=== PATIENT | male | born 1995 | race Caucasian/White ===

== ENCOUNTER 2016-04-20 19:20 | Emergency (ER) | payer SELFPAY ==
[2016-04-20] MEDS ORDERED: ACETAMINOPHEN 325 MG TABLET PO ONE ×2 (20:17→20:19)
--- NOTE | 2016-04-20 20:53 | ER Document Report ---
ED Flu Like - General Chief Complaint: Flu Symptoms Stated Complaint: COUGH,VOMITING,HURTS TO BREATHE Notes: Patient is a 21-year-old male that comes emergency department for chief complaint of fever, cough, sore throat, and a couple of episodes of vomiting after coughing episodes, symptoms started yesterday, patient has not had influenza vaccine, denies history of asthma, patient smokes 2 packs a day, past medical history of anxiety and depression. TRAVEL OUTSIDE OF THE [place] IN LAST 30 DAYS: No - Related Data Allergies/Adverse Reactions: No Known Allergies Allergy (Verified 04/20/16 20:16) Past Medical History - General Information source: Patient - Social History Smoking Status: Current Every Day Smoker Chew tobacco use (# tins/day): No Frequency of alcohol use: Social Drug Abuse: None Lives with: Family Family History: Reviewed & Not Pertinent Patient has suicidal ideation: No Patient has homicidal ideation: No - Medical History Medical History: Negative Renal/ Medical History: Denies: Hx Peritoneal Dialysis Surgical Hx: Negative - Immunizations Immunizations up to date: Yes Review of Systems - Review of Systems Constitutional: See HPI EENT: See HPI Cardiovascular: No symptoms reported Respiratory: See HPI Gastrointestinal: No symptoms reported Genitourinary: No symptoms reported Male Genitourinary: No symptoms reported Musculoskeletal: No symptoms reported Skin: No symptoms reported Hematologic/Lymphatic: No symptoms reported Neurological/Psychological: No symptoms reported Physical Exam - Vital signs Vitals: Temp Pulse Resp BP Pulse Ox 101.8 F H 111 H 17 133/71 H 96 04/20/16 19:51 04/20/16 19:51 04/20/16 19:51 04/20/16 19:51 04/20/16 19:51 Interpretation: Normal - General General appearance: Appears well, Alert In distress: None - HEENT Head: Normocephalic, Atraumatic Eyes: Normal Pupils: PERRL - Respiratory Respiratory status: No respiratory distress. No: Labored, Tachypnea Chest status: Nontender Breath sounds: Nonproductive cough - Coughing episodes, Other - A few coarse breath sounds bilaterally, no wheezing, rales, rhonchi Chest palpation: Normal - Cardiovascular Rhythm: Regular, Tachycardia Heart sounds: Normal auscultation, S1 appreciated, S2 appreciated Murmur: No - Abdominal Inspection: Normal Distension: No distension Bowel sounds: Normal Tenderness: Nontender. No: Tender Organomegaly: No organomegaly - Back Back: Normal, Nontender. No: Tender - Extremities General upper extremity: Normal inspection, Nontender, Normal strength, Normal temperature General lower extremity: Normal inspection, Nontender, Normal strength, Normal temperature - Neurological Neuro grossly intact: Yes Cognition: Normal Orientation: AAOx4 [place] Coma Scale Eye Opening: Spontaneous [place] Coma Scale Verbal: Oriented [place] Coma Scale Motor: Obeys Commands [place] Coma Scale Total: 15 Speech: Normal Motor strength normal: LUE, RUE, LLE, RLE Sensory: Normal - Psychological Associated symptoms: Normal affect, Normal mood - Skin Skin Temperature: Warm Skin Moisture: Dry Skin Color: Normal Course - Re-evaluation Re-evalutation: Patient febrile, has coughing episodes, unremarkable throat exam, chest x-ray unremarkable, influenza negative. Patient with coarse breath sounds on examination, 2 pack a day smoking history, after discussion patient will be placed on prednisone, azithromycin, discussed smoking cessation, patient states satisfaction and agreement with plan. - Vital Signs Vital signs: Temp Pulse Resp BP Pulse Ox 99.5 F 92 18 126/73 H 98 04/20/16 21:35 04/20/16 21:35 04/20/16 21:35 04/20/16 21:35 04/20/16 21:35 Discharge - Discharge Clinical Impression: Cough, Tobacco abuse, Shortness of breath Upper respiratory infection Qualifiers: URI type: unspecified URI Qualified Code(s): J06.9 - Acute upper respiratory infection, unspecified Fever Qualifiers: Fever type: unspecified Qualified Code(s): R50.9 - Fever, unspecified Condition: Stable Disposition: HOME, SELF-CARE Additional Instructions: No abnormalities are seen on her chest x-ray, influenza is negative. This could be viral, rest, drink plenty of fluids, take ibuprofen or Tylenol for fever, take the prednisone and azithromycin as directed. Stop smoking. Follow-up with primary care. Return to the emergency department for any concerning or worsening symptoms. Prescriptions: Azithromycin [Zithromax 250 mg Tablet] 250 mg PO ASDIR PRN #6 tablet PRN Reason: Prednisone [Deltasone 10 mg Tablet] 10 mg PO ASDIR PRN #21 tablet PRN Reason: Forms: Return to Work
[2016-04-20 22:15] VITALS: BP 126/73
== END 2016-04-20 21:40 | disposition home or self-care (01) ==
LOC: ER 19:20
DX: J06.9 Acute upper respiratory infection, unspecified (principal); R50.9 Fever, unspecified; R11.10 Vomiting, unspecified; R06.02 Shortness of breath; F17.210 Nicotine dependence, cigarettes, uncomplicated
CPT/HCPCS: 71020; 87804; 99283

== ENCOUNTER 2016-09-20 12:13 | Emergency (ER) | payer SELFPAY ==
[2016-09-20 12:18] VITALS: BP 150/91
[2016-09-20] MEDS ORDERED: MAG HYDROX/AL HYDROX/SIMETH SUSP 30 ML UDCUP PO ONE (13:05)
[2016-09-20] MEDS ORDERED: LIDOCAINE 2% VISCOUS SOLN 20 ML UDCUP PO ONE (13:05)
--- NOTE | 2016-09-20 13:10 | ER Document Report ---
HPI - HPI Patient complains to provider of: sore throat Pain Level: 5 Context: 21 yo healthy male c/o sore throat x 1 week. feels like hes swallowing razor blades. pain into right ear. no fever. no runny nose or post nasal drip. no known sick contacts Associated Symptoms: Sore throat. denies: Fever, Sinus pain/drainage Exacerbated by: Denies Relieved by: Denies - ROS Systems Reviewed and Negative: Yes All other systems reviewed and negative - REPRODUCTIVE Reproductive: DENIES: : - DERM Skin Color: Normal Past Medical History - General Information source: Patient - Social History Smoking Status: Current Every Day Smoker Frequency of alcohol use: None Drug Abuse: None Lives with: Family Family History: Reviewed & Not Pertinent - Medical History Medical History: Negative Renal/ Medical History: Denies: Hx Peritoneal Dialysis - Immunizations Immunizations up to date: Yes Hx Diphtheria, Pertussis, Tetanus Vaccination: Yes Vertical Provider Document - CONSTITUTIONAL Agree With Documented VS: Yes Exam Limitations: No Limitations General Appearance: WD/WN, No Apparent Distress - INFECTION CONTROL TRAVEL OUTSIDE OF THE [place] IN LAST 30 DAYS: No - HEENT HEENT: Atraumatic, PERRLA, Pharyngeal Tenderness, Pharyngeal Erythema - NECK Neck: Normal Inspection, Supple - RESPIRATORY Respiratory: Breath Sounds Normal, No Respiratory Distress O2 Sat by Pulse Oximetry: 98 - CARDIOVASCULAR Cardiovascular: Regular Rate, Regular Rhythm - GI/ABDOMEN Gastrointestinal: Abdomen Soft, Abdomen Non-Tender - BACK Back: Normal Inspection - MUSCULOSKELETAL/EXTREMETIES Musculoskeletal/Extremeties: MAEW, FROM - NEURO Level of Consciousness: Awake, Alert, Appropriate - DERM Integumentary: Warm, Dry, No Rash Course - Re-evaluation Re-evalutation: 09/20/16 13:15 H&P c/w pharyngitis. no suspicion for ludwigs or peritonsillar abscess. pt is afebrile and nontoxic. stable for discharge - Vital Signs Vital signs: Temp Pulse Resp BP Pulse Ox 98.4 F 77 16 150/91 H 98 09/20/16 12:16 09/20/16 12:16 09/20/16 12:16 09/20/16 12:16 09/20/16 12:16 Discharge - Discharge Clinical Impression: Sore throat Condition: Stable Disposition: HOME, SELF-CARE Instructions: Penicillin V K ([facility]), Sore Throat ([facility]) Additional Instructions: Take medication as prescribed Lozenges, salt water gargles Recommend new toothbrush in 2 days Follow up with primary care if pain persists, Return to ER for any worsening Prescriptions: Nystatin/Dexameth/Diphen [Magic Mouthwash] 5 ml PO QID PRN #120 ml PRN Reason: Penicillin V Potassium [Penicillin Vk 500 mg Tablet] 500 mg PO BID #20 tablet Prednisone [Deltasone 20 mg Tablet] 2 tab PO BID #16 tablet Forms: Elevated Blood Pressure
== END 2016-09-20 13:29 | disposition home or self-care (01) ==
LOC: ER 12:13
DX: J02.9 Acute pharyngitis, unspecified (principal); F17.200 Nicotine dependence, unspecified, uncomplicated
CPT/HCPCS: 99282; J3490

== ENCOUNTER 2017-05-29 22:23 | Emergency (ER) | payer SELFPAY ==
--- NOTE | 2017-05-29 23:17 | RADIOLOGY REPORT (SQ) ---
EXAM DESCRIPTION: CHEST 2 VIEWS COMPLETED DATE/TIME: 05/29/2017 11:07 pm REASON FOR STUDY: cough COMPARISON: 04/20/2016. EXAM PARAMETERS: NUMBER OF VIEWS: two views TECHNIQUE: Digital Frontal and Lateral radiographic views of the chest acquired. RADIATION DOSE: NA LIMITATIONS: none FINDINGS: LUNGS AND PLEURA: No opacities, masses or pneumothorax. No pleural effusion. MEDIASTINUM AND HILAR STRUCTURES: No masses or contour abnormalities. HEART AND VASCULAR STRUCTURES: Heart normal size. No evidence for failure. BONES: No acute findings. HARDWARE: None in the chest. OTHER: No other significant finding. IMPRESSION: NO ACUTE RADIOGRAPHIC FINDING IN THE CHEST. TECHNICAL DOCUMENTATION: JOB ID: [id number] [employer]- All Rights Reserved Reading location - IP/workstation name: [email or web address]
[2017-05-30] MEDS ORDERED: DEXAMETHASONE 4 MG TABLET PO ONE (00:08)
[2017-05-30] MEDS ORDERED: ALBUTEROL SULFATE HFA (90 MCG/PUFF) 200 PUFF/8.5 GM MDI IH ONE (00:08)
[2017-05-30] MEDS ORDERED: OXYMETAZOLINE HCL 0.05% NASAL SPRAY 15 ML BOTTLE NASL ONE (00:08)
--- NOTE | 2017-05-30 00:11 | ER Document Report ---
ED General - General Chief Complaint: Cough Stated Complaint: DIFFICULTY BREATHING Time Seen by Provider: 05/29/17 23:45 Notes: Patient is a 22-year-old male without past medical history current every day tobacco smoker who presents with 5-6 days of cough, sputum production, chest wall pain, body aches and lightheadedness. Patient reports that his symptoms started gradually and have been persistent since that time. He has been trying [id number] decongestants without any improvement of his symptoms. He states this feels somewhat similar to when he had bronchitis in the past. He has not seen his primary doctor regarding today's concerns. He describes the chest wall discomfort as an aching, throbbing discomfort that is present only when he coughs or moves vigorously. Denies any hemoptysis, pleuritic pain, or history of DVT or pulmonary embolus. He reports that he had subjective fever at home approximately 2-3 days ago. TRAVEL OUTSIDE OF THE [place] IN LAST 30 DAYS: No - Related Data Allergies/Adverse Reactions: No Known Allergies Allergy (Verified 09/20/16 12:17) Past Medical History - General Information source: Patient - Social History Smoking Status: Current Every Day Smoker Smoking Education Provided: Yes - Smoking cessation counseling was provided for 4 minutes at the bedside Frequency of alcohol use: None Drug Abuse: None Lives with: Friend Family History: Reviewed & Not Pertinent Renal/ Medical History: Denies: Hx Peritoneal Dialysis - Immunizations Immunizations up to date: Yes Hx Diphtheria, Pertussis, Tetanus Vaccination: Yes Review of Systems - Review of Systems Notes: Constitutional: Negative for fever. HENT: Negative for sore throat. Eyes: Negative for visual changes. Cardiovascular: Positive for chest wall pain Respiratory: Positive for shortness of breath. Gastrointestinal: Negative for abdominal pain, vomiting or diarrhea. Genitourinary: Negative for dysuria. Musculoskeletal: Negative for back pain. Skin: Negative for rash. Neurological: Negative for headaches, weakness or numbness. 10 point ROS negative except as marked above and in HPI. Physical Exam - Vital signs Vitals: Temp Pulse Resp BP Pulse Ox 98.2 F 98 16 153/87 H 100 05/29/17 22:32 05/29/17 22:32 05/29/17 22:32 05/29/17 22:32 05/29/17 22:32 Interpretation: Hypertensive Notes: PHYSICAL EXAMINATION: GENERAL: Well-appearing, well-nourished and in no acute distress. HEAD: Atraumatic, normocephalic. EYES: Pupils equal round and reactive to light, extraocular movements intact, sclera anicteric, conjunctiva are normal. ENT: nares patent, oropharynx clear without exudates. Moist mucous membranes. TMs somewhat erythematous bilaterally without bulging or purulent effusion. NECK: Normal range of motion, supple without lymphadenopathy LUNGS: Breath sounds clear to auscultation bilaterally and equal. Faint end expiratory wheezing throughout. HEART: Regular rate and rhythm without murmurs ABDOMEN: Soft, nontender, normoactive bowel sounds. No guarding, no rebound. No masses appreciated. EXTREMITIES: Normal range of motion, no pitting or edema. No cyanosis. NEUROLOGICAL: No focal neurological deficits. Moves all extremities spontaneously and on command. PSYCH: Normal mood, normal affect. SKIN: Warm, Dry, normal turgor, no rashes or lesions noted. Course - Re-evaluation Re-evalutation: 05/30/17 00:09 Patient presents with a clinical history and exam most consistent with an acute viral bronchitis. Patient is overall well in appearance without tachypnea, hypoxemia, tachycardia, or difficulty with ambulation. Breath sounds are clear bilaterally. No fever. Patient does have additional signs of upper respiratory infection including nasal congestion, sore throat, and sinus pressure. Chest x-ray is clear. Will treat with bronchodilators, single dose of dexamethasone, and Tessalon Perles. At this time will discharge with return precautions and follow-up recommendations. Verbal discharge instructions given a the bedside and opportunity for questions given. Medication warnings reviewed. Patient is in agreement with this plan and has verbalized understanding of return precautions and the need for primary care follow-up in the next 24-72 hours. - Vital Signs Vital signs: Temp Pulse Resp BP Pulse Ox 98.1 F 83 18 145/70 H 96 05/30/17 00:28 05/30/17 00:28 05/30/17 00:28 05/30/17 00:28 05/30/17 00:28 - Diagnostic Test Radiology reviewed: Image reviewed, Reports reviewed Radiology results interpreted by me: 05/30/17 03:39 Chest x-ray: No acute infiltrate or pneumothorax Discharge - Discharge Clinical Impression: Bronchitis, Right ear pain, Tobacco use Condition: Good Disposition: HOME, SELF-CARE Additional Instructions: You were seen for symptoms most consistent with bronchitis. This can take up to 12 weeks to fully resolve. This is generally due to a viral infection. Please follow-up with your primary doctor in the next 2-3 days. Return if you develop worsening cough, vomiting, fever >100.4, pass out, begin coughing blood, or have any other symptoms that are concerning to you. Please use the medications prescribed today as directed. Prescriptions: Benzonatate [Tessalon Perles 100 mg Capsule] 100 mg PO Q8HP PRN #40 capsule PRN Reason: Forms: Smoking Cessation Education
[2017-05-30 00:30] VITALS: BP 145/70
== END 2017-05-30 00:32 | disposition home or self-care (01) ==
LOC: ER 22:23
DX: J40 Bronchitis, not specified as acute or chronic (principal); H92.01 Otalgia, right ear; R05 Cough; R07.89 Other chest pain; M79.1 Myalgia; R42 Dizziness and giddiness; R06.02 Shortness of breath; R06.2 Wheezing; R09.81 Nasal congestion; J02.9 Acute pharyngitis, unspecified; F17.290 Nicotine dependence, other tobacco product, uncomplicated; Z71.6 Tobacco abuse counseling
CPT/HCPCS: 99406; 99283; 71046; J3490 ×2

== ENCOUNTER 2019-04-16 01:41 | Emergency (ER) | payer SELFPAY ==
[2019-04-16 02:38] LABS: ABSOLUTE EOSINOPHILS # (AUTO) 0.1 10^3/uL (0.0-0.6); ABSOLUTE LYMPHOCYTES (AUTO) 2.1 10^3/uL (0.5-4.7); ABSOLUTE MONOCYTES (AUTO) 0.6 10^3/uL (0.1-1.4); ABSOLUTE NEUT (AUTO) 6.4 10^3/uL (1.7-8.2); BASOPHILS % (AUTO) 0.5 % (0-2); EOSINOPHILS % (AUTO) 1.4 % (0-6); HEMATOCRIT 47.2 % (37.9-51.0); HEMOGLOBIN 16.3 g/dL (13.5-17.0); LYMPHOCYTES % (AUTO) 22.5 % (13-45); MEAN CORPUSCULAR HEMOGLOBIN 31.5 pg (27.0-33.4); MEAN CORPUSCULAR HGB CONC 34.5 g/dL (32.0-36.0); MEAN CORPUSCULAR VOLUME 91 fl (80-97); MONOCYTES % (AUTO) 6.4 % (3-13); PLATELET COUNT 203 10^3/uL (150-450); RED BLOOD COUNT 5.17 10^6/uL (4.35-5.55); RED CELL DISTRIBUTION WIDTH 13.4 % (11.5-14.0); SEGMENTED NEUTROPHILS % (AUTO) 69.2 % (42-78); TOTAL CELLS COUNTED % (AUTO) 100 %; WHITE BLOOD COUNT 9.2 10^3/uL (4.0-10.5)
[2019-04-16 02:53] LABS: APPEARANCE,URINE CLEAR; BILIRUBIN,URINE NEGATIVE (NEGATIVE); COLOR,URINE YELLOW; GLUCOSE, URINE NEGATIVE (NEGATIVE); KETONES,URINE NEGATIVE (NEGATIVE); LEUKOCYTE ESTERASE,URINE NEGATIVE (NEGATIVE); NITRITE,URINE NEGATIVE (NEGATIVE); PROTEIN,URINE NEGATIVE (NEGATIVE); URINE SPECIFIC GRAVITY 1.012; UROBILINOGEN,URINE NEGATIVE mg/dL (<2.0)
[2019-04-16 02:58] LABS: ALBUMIN 4.3 g/dL (3.5-5.0); ALKALINE PHOSPHATASE 78 U/L (38-126); ANION GAP 6 (5-19); ASPARTATE AMINO TRANSFERASE 39 U/L (17-59); BILIRUBIN,TOTAL 0.3 mg/dL (0.2-1.3); BLOOD UREA NITROGEN 17 mg/dL (7-20); CALCIUM 9.6 mg/dL (8.4-10.2); CARBON DIOXIDE 29 mmol/L (22-30); CHLORIDE 105 mmol/L (98-107); GLUCOSE 88 mg/dL (75-110); POTASSIUM 4.4 mmol/L (3.6-5.0); TOTAL PROTEIN 6.9 g/dL (6.3-8.2)
[2019-04-16 02:59] LABS: ALCOHOL < 10 mg/dL (NONE DETECTED)
[2019-04-16 03:07] LABS: URINE AMPHETAMINES SCREEN NEGATIVE; URINE BARBITURATES SCREEN NEGATIVE; URINE BENZODIAZEPINES SCREEN NEGATIVE; URINE COCAINE SCREEN NEGATIVE; URINE METHADONE SCREEN NEGATIVE; URINE PHENCYCLIDINE SCREEN NEGATIVE
[2019-04-16 03:11] LABS: URINE MARIJUANA (THC) SCREEN UNCONFIRMED POSITIVE
--- NOTE | 2019-04-16 03:24 | ER Document Report ---
ED Psych Disorder / Suicide - General Chief Complaint: Possible Overdose Stated Complaint: POSSIBLE OVERDOSE Time Seen by Provider: 04/16/19 03:06 Notes: Patient is a 24-year-old male that comes emergency department for chief complaint of an overdose. Patient states that this was an intentional overdose because he was "hoping I would not wake up". At approximately 1 AM patient took 60 0.5 mg tablets of Klonopin, uncertain amount of Lamictal (old prescription from 2017, reportedly "several tablets" in the bottle), and there is an empty cullen ttle of Percocet (5/325) filled on 09/06/2018. Patient also states that he drank a bottle of [employer] liquor early in the morning and took heroin last night but he denies recreational drugs or alcohol since that time. Patient denies any current symptoms other than feeling somewhat tired. Patient states that he had visitation with his children the first time today since and he was hoping they would spend the night but instead of leaving them with him his ex took the children with her. He states this was too much and he therefore overdosed hoping he would not wake up. He states "this is not the worst I have ever taken". Patient states he is diagnosed with anxiety/depression but denies diagnosis of anything else. Parents are at bedside. TRAVEL OUTSIDE OF THE [place] IN LAST 30 DAYS: No - Related Data Allergies/Adverse Reactions: No Known Allergies Allergy (Verified 09/20/16 12:17) Past Medical History - General Information source: Patient, Parent - Social History Smoking Status: Current Every Day Smoker Chew tobacco use (# tins/day): No Frequency of alcohol use: Social Drug Abuse: Heroin, Marijuana, Prescription drugs Lives with: Family Family History: Reviewed & Not Pertinent Patient has suicidal ideation: Yes Patient has homicidal ideation: No Renal/ Medical History: Denies: Hx Peritoneal Dialysis Psychiatric Medical History: Reports: Hx Anxiety, Hx Depression - Immunizations Immunizations up to date: Yes Hx Diphtheria, Pertussis, Tetanus Vaccination: Yes Review of Systems - Review of Systems Constitutional: No symptoms reported EENT: No symptoms reported Cardiovascular: No symptoms reported Respiratory: No symptoms reported Gastrointestinal: No symptoms reported Genitourinary: No symptoms reported Male Genitourinary: No symptoms reported Musculoskeletal: No symptoms reported Skin: No symptoms reported Hematologic/Lymphatic: No symptoms reported Neurological/Psychological: See HPI Physical Exam - Vital signs Vitals: Temp Pulse Resp BP Pulse Ox 97.6 F 96 18 146/71 H 97 04/16/19 01:46 04/16/19 01:46 04/16/19 01:46 04/16/19 01:46 04/16/19 01:46 - Notes Notes: GENERAL: Alert, no signs of distress HEAD: Normocephalic, atraumatic. EYES: Pupils equal, round, and reactive to light. Extraocular movements intact. ENT: Oral mucosa moist, tongue midline. Oropharynx unremarkable. Airway patent. NECK: Full range of motion. Supple. Trachea midline. LUNGS: Clear to auscultation bilaterally, no wheezes, rales, or rhonchi. No respiratory distress. HEART: Regular rate and rhythm. No murmur ABDOMEN: Soft, non-tender. Non-distended. EXTREMITIES: Moves all 4 extremities spontaneously. No edema, normal radial and dorsalis pedis pulses bilaterally. No cyanosis. BACK: no cervical, thoracic, lumbar midline tenderness. No saddle anesthesia, normal distal neurovascular exam. NEUROLOGICAL: Alert and oriented x3. Normal speech. Cranial nerves II through XII grossly intact. PSYCH: Speaks quietly but frequently, makes poor eye contact. No flight of ideas, does not appear to be responding to internal stimuli. Occasionally irritable SKIN: Warm, dry, normal turgor. No rashes or lesions noted. Course - Re-evaluation Re-evalutation: 04/16/19 03:20 Poison control has been contacted and recommends that patient be monitored for 12 hours. Recommendation is benzodiazepines if patient develops seizure activity secondary to Lamictal and IV fluids otherwise. Recommendation is also that if QRS is prolonged greater than 140 patient can be given bicarbonate. QRS is 90. On my evaluation patient is very awake, alert, making threats that he will "bolt", he is not slurring his speech, he is very aware of his surroundings and talks continuously but quietly. He is sitting quietly on the bed without any signs of distress. At this point I actually have low suspicion that patient did take the very large amount of Klonopin along with the Percocet that he states. Regardless patient will be medically cleared per poison control recommendations. Discussed with Dr. Gonzales. 04/16/19 03:44 Patient threatening to leave, took himself off the monitor, started undressing to and asking for his clothes. I explained to the patient that he is on paperwork for 24-hour hold, because of his suicide attempt we cannot allow him to leave and if he attempts to leave we will stop it. Initially patient stated that he would try anyway but then he agreed that he would stay on the monitor and not leave, he requests to not be restrained. Patient was not restrained at this time because he is cooperative. 04/16/19 05:03 Patient ripped off his monitoring, advanced to the door threatening to leave and threatening that "there is no way any of you would be able to stop me". I warned patient that he cannot leave, he is on paperwork because of his suicide attempt and that we are responsible for him until he is medically cleared and has been evaluated by the mental health team. I advised him that if he attempts to leave we would have to stop him. Patient then attempted to shove past staff and security guards, we had to bring him back to the bed and restrain him on the bed. Patient replaced on the monitor because patient has not been medically cleared. Patient has been discussed with Dr. Gonzales. 04/16/19 06:05 I attempted to get patient out of the restraints, he is still very awake and alert, I discussed taking them off, he states that if we "let me out of restraints I am going to flip my shit on all of you". I explained to the patient that for this reason and because he is trying to leave we will have to keep him in restraints. For patient to remain in the department for medical clearance and for staff safety unfortunately patient will remain in restraints at this time. CBC, chemistry unremarkable, EKG is not concerning, drug screen shows marijuana and the heroin that patient reported. Alcohol negative. Vital signs are unremarkable. Patient will be medically cleared after he has been monitored for 12 hours which will be early afternoon. - Vital Signs Vital signs: Temp Pulse Resp BP Pulse Ox 98.7 F 111 H 18 134/86 H 98 04/16/19 11:00 04/16/19 11:00 04/16/19 11:00 04/16/19 11:00 04/16/19 11:00 - Laboratory Result Diagrams: 04/16/19 02:16 04/16/19 02:16 Laboratory results interpreted by me: 04/16/19 04/16/19 02:16 02:19 ALT 68 H Acetaminophen < 10 L Discharge - Discharge Clinical Impression: Intentional overdose of drug in tablet form, Suicide attempt, Suicidal ideations Condition: Stable Disposition: PSYCH HOSP/UNIT
[2019-04-16] MEDS ORDERED: NORMAL SALINE 1000 ML 1,000 ML IV ONE (03:28)
[2019-04-16] MEDS ORDERED: HYDROXYZINE PAMOATE 50 MG CAPSULE PO ONE (10:33)
--- NOTE | 2019-04-16 10:56 | ER Document Report ---
Doctor's Note Notes: 04/16/19 10:55 PHYSICAL EXAMINATION: GENERAL: Appears well, healthy, well-nourished, no acute distress. LUNGS: Equal breath sounds bilaterally and clear to auscultation. No wheezes rales or rhonchi. CARDIOVASCULAR: S1-S2, regular rate, regular rhythm. Radial pulses 2+, normal. ABDOMEN: Normoactive bowel sounds. Soft, nontender, no guarding, no rebound tenderness, and no masses palpated. PSYCH: Appears anxious. Patient denies any suicidal or homicidal ideation at this time. He states that he just wants to see his children. He states that he was supposed to see them today. Patient will receive Vistaril here in the emergency department to help with his anxiety.
--- NOTE | 2019-04-16 11:55 | EKG REPORT ---
SEVERITY:- NORMAL ECG - SINUS RHYTHM : Confirmed by: Lissette Greenfield 16-Apr-2019 11:54:33
[2019-04-16] MEDS ORDERED: NICOTINE 21 MG/24 HR PATCH.TD24 TD ONE (16:37)
[2019-04-16] MEDS: BENZTROPINE MESYLATE 1 MG TABLET PO SCH (19:02)
[2019-04-16] MEDS: OLANZAPINE 5 MG TABLET PO SCH (19:02)
[2019-04-17] MEDS: BENZTROPINE MESYLATE 1 MG TABLET PO SCH (09:42)
[2019-04-17] MEDS: OLANZAPINE 5 MG TABLET PO SCH ×2 (09:42→18:06)
--- NOTE | 2019-04-17 12:48 | ER Document Report ---
Doctor's Note Notes: 04/17/19 12:47 Chart reviewed patient rounded on. Patient is resting quietly in the bed. Denies complaints. PHYSICAL EXAMINATION: GENERAL: Well-appearing and in no acute distress HEAD: Atraumatic, normocephalic. EYES: extraocular movements intact, sclera anicteric, conjunctiva are normal. ENT: nares patent, Moist mucous membranes. NECK: Normal range of motion, supple LUNGS: Respiratory rate even unlabored HEART: Regular rate ABDOMEN: No complaints of pain EXTREMITIES: Normal range of motion NEUROLOGICAL: Cranial nerves grossly intact. PSYCH: Normal mood, normal affect. calm SKIN: Warm, Dry, normal turgor, 04/17/19 19:27 Patient resting quietly all day. Mother visiting without complaints. nicotine patch reordered.
[2019-04-17] MEDS ORDERED: DIPHENHYDRAMINE HCL 25 MG CAPSULE PO ONE (14:11)
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
[2019-04-17] MEDS ORDERED: NICOTINE 21 MG/24 HR PATCH.TD24 TD SCH (19:30)
[2019-04-17 20:25] VITALS: BP 127/84
== END 2019-04-17 22:18 ==
LOC: ER 01:41
DX: T42.4X1A Poisoning by benzodiazepines, accidental (unintentional), initial encounter (principal); T42.6X1A Poisoning by other antiepileptic and sedative-hypnotic drugs, accidental (unintentional), initial encounter; F11.10 Opioid abuse, uncomplicated; F12.10 Cannabis abuse, uncomplicated; F17.200 Nicotine dependence, unspecified, uncomplicated; Z78.1 Physical restraint status; Z75.1 Person awaiting admission to adequate facility elsewhere; Z63.5 Disruption of family by separation and divorce
CPT/HCPCS: 36415; 80053; 80307; 81001; 85025; 93005; 93010; 99284

== ENCOUNTER 2019-08-05 20:42 | Emergency (ER) | payer SELFPAY ==
[2019-08-05] MEDS ORDERED: NORMAL SALINE 1000 ML 1,000 ML IV ONE (21:29)
--- NOTE | 2019-08-05 21:29 | ER Document Report ---
ED Medical Screen (RME) - General Chief Complaint: High Blood Pressure Stated Complaint: SHAKINESS, HIGH BLOOD PRESSURE, NAUSEA, VOMITING Time Seen by Provider: 08/05/19 21:23 Mode of Arrival: Ambulatory Information source: Patient Notes: 24-year-old male presented to ED for complaint of near syncopal episode at work. 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 He states someone took his pulse and it was 117. They checked his blood pressure was 150/55 he had a headache and was very dizzy. They made him sit down for a little while and then sent him home. He states he still very shaky and lightheaded. He still has a headache. His pulse is 106 at this time blood pressure is 150/88. I have greeted and performed a rapid initial assessment of this patient. A comprehensive ED assessment and evaluation of the patient, analysis of test results and completion of medical decision making process will be conducted by an additional ED providers. TRAVEL OUTSIDE OF THE [place] IN LAST 30 DAYS: No - Related Data Allergies/Adverse Reactions: No Known Allergies Allergy (Verified 09/20/16 12:17) Past Medical History Renal/ Medical History: Denies: Hx Peritoneal Dialysis Psychiatric Medical History: Reports: Hx Anxiety, Hx Depression - Immunizations Immunizations up to date: Yes Hx Diphtheria, Pertussis, Tetanus Vaccination: Yes Physical Exam - Vital signs Vitals: Temp Pulse Resp BP Pulse Ox 99.2 F 106 H 24 H 153/104 H 97 08/05/19 20:50 08/05/19 20:50 08/05/19 20:50 08/05/19 20:50 08/05/19 20:50 Course - Vital Signs Vital signs: Temp Pulse Resp BP Pulse Ox 99.2 F 106 H 24 H 153/104 H 97 08/05/19 20:50 08/05/19 20:50 08/05/19 20:50 08/05/19 20:50 08/05/19 20:50
--- NOTE | 2019-08-05 21:53 | EKG REPORT ---
SEVERITY:- NORMAL ECG - SINUS RHYTHM : Confirmed by: Asia Eason MD 05-Aug-2019 21:53:07
[2019-08-05 22:10] LABS: ABSOLUTE BASOPHILS # (AUTO) 0.1 10^3/uL (0.0-0.2); ABSOLUTE LYMPHOCYTES (AUTO) 1.7 10^3/uL (0.5-4.7); ABSOLUTE MONOCYTES (AUTO) 0.6 10^3/uL (0.1-1.4); ABSOLUTE NEUT (AUTO) 5.6 10^3/uL (1.7-8.2); BASOPHILS % (AUTO) 0.7 % (0-2); EOSINOPHILS % (AUTO) 0.6 % (0-6); HEMATOCRIT 48.8 % (37.9-51.0); HEMOGLOBIN 16.8 g/dL (13.5-17.0); LYMPHOCYTES % (AUTO) 21.3 % (13-45); MEAN CORPUSCULAR HEMOGLOBIN 31.5 pg (27.0-33.4); MEAN CORPUSCULAR HGB CONC 34.5 g/dL (32.0-36.0); MEAN CORPUSCULAR VOLUME 91 fl (80-97); MONOCYTES % (AUTO) 7.6 % (3-13); PLATELET COUNT 207 10^3/uL (150-450); RED BLOOD COUNT 5.34 10^6/uL (4.35-5.55); SEGMENTED NEUTROPHILS % (AUTO) 69.8 % (42-78); TOTAL CELLS COUNTED % (AUTO) 100 %; WHITE BLOOD COUNT 8.1 10^3/uL (4.0-10.5)
[2019-08-05 22:11] LABS: APPEARANCE,URINE CLEAR; BILIRUBIN,URINE NEGATIVE (NEGATIVE); COLOR,URINE YELLOW; GLUCOSE, URINE NEGATIVE (NEGATIVE); KETONES,URINE NEGATIVE (NEGATIVE); LEUKOCYTE ESTERASE,URINE NEGATIVE (NEGATIVE); NITRITE,URINE NEGATIVE (NEGATIVE); PROTEIN,URINE NEGATIVE (NEGATIVE); URINE SPECIFIC GRAVITY 1.026; UROBILINOGEN,URINE NEGATIVE mg/dL (<2.0)
[2019-08-05 22:21] LABS: ALBUMIN 4.7 g/dL (3.5-5.0); ALKALINE PHOSPHATASE 88 U/L (38-126); ANION GAP 7 (5-19); ASPARTATE AMINO TRANSFERASE 61 U/L (17-59); BILIRUBIN,TOTAL 0.4 mg/dL (0.2-1.3); BLOOD UREA NITROGEN 17 mg/dL (7-20); CALCIUM 9.7 mg/dL (8.4-10.2); CARBON DIOXIDE 25 mmol/L (22-30); CHLORIDE 103 mmol/L (98-107); GLUCOSE 100 mg/dL (75-110); TOTAL PROTEIN 7.3 g/dL (6.3-8.2)
[2019-08-05] MEDS ORDERED: CLONAZEPAM 1 MG TABLET PO ONE (23:19)
[2019-08-05 23:44] VITALS: BP 145/96
--- NOTE | 2019-08-05 23:45 | ER Document Report ---
Entered by JODI JARA SCRIBE 08/05/19 3028 Acting as scribe for:CHANTE SANTANA IV, MD ED General - General Chief Complaint: Near Syncope Stated Complaint: SHAKINESS, HIGH BLOOD PRESSURE, NAUSEA, VOMITING Time Seen by Provider: 08/05/19 21:23 Mode of Arrival: Ambulatory Information source: Patient Notes: This 24 year old male patient presents to the ED today with complaints of near- syncopal episode that occurred at work. Patient reports sudden onset dizziness, heart racing, and lightheadedness. Patient states that just prior to symptom onset, he was texting his girlfriend who was planning to go see her ex- boyfriend. Patient also states that he is going through a divorce and has been from his kids. He reports a history of anxiety, stating that he used to take Clonazepam 0.5 mg BID and an additional medication that may have been an antidepressant; however, he stopped taking them because he began to have eloy symptoms that required admission to a psychiatric facility. TRAVEL OUTSIDE OF THE [place] IN LAST 30 DAYS: No - Related Data Allergies/Adverse Reactions: prednisone Adverse Reaction (Verified 08/05/19 21:37) Past Medical History - General Information source: Patient - Social History Smoking Status: Current Every Day Smoker Cigarette use (# per day): Yes Chew tobacco use (# tins/day): No Smoking Education Provided: No Family History: Reviewed & Not Pertinent Patient has suicidal ideation: No Patient has homicidal ideation: No - Past Medical History Cardiac Medical History: Reports: Hx Hypertension Psychiatric Medical History: Reports: Hx Anxiety, Hx Depression - Immunizations Immunizations up to date: Yes Hx Diphtheria, Pertussis, Tetanus Vaccination: Yes Review of Systems - Review of Systems Constitutional: No symptoms reported EENT: No symptoms reported Cardiovascular: See HPI, Heart racing, Syncope - near, Dizziness, Lightheaded Respiratory: No symptoms reported Gastrointestinal: No symptoms reported Genitourinary: No symptoms reported Male Genitourinary: No symptoms reported Musculoskeletal: No symptoms reported Skin: No symptoms reported Hematologic/Lymphatic: No symptoms reported Neurological/Psychological: See HPI, Headaches -: Yes All other systems reviewed and negative Physical Exam - Vital signs Vitals: Temp Pulse Resp BP Pulse Ox 99.2 F 106 H 24 H 153/104 H 97 06/13/20 20:50 08/05/19 20:50 08/05/19 20:50 08/05/19 20:50 08/05/19 20:50 - General General appearance: Alert, Anxious In distress: None - HEENT Head: Normocephalic, Atraumatic Eyes: Normal Pupils: PERRL - Respiratory Respiratory status: No respiratory distress Chest status: Nontender Breath sounds: Normal Chest palpation: Normal - Cardiovascular Rhythm: Regular Heart sounds: Normal auscultation Murmur: No Friction rub: No Gallop: None auscultated - Abdominal Inspection: Normal Distension: No distension Bowel sounds: Normal Tenderness: Nontender - Abdomen soft Organomegaly: No organomegaly - Back Back: Normal, Nontender - Extremities General upper extremity: Normal inspection General lower extremity: Normal inspection - Neurological Neuro grossly intact: Yes Orientation: AAOx4 - Psychological Associated symptoms: Anxious - Skin Skin Temperature: Warm Skin Moisture: Dry Skin Color: Normal Course - Re-evaluation Re-evalutation: 08/05/19 23:21 Results of ED MSE discussed with patient. All questions were answered prior to discharge. Emergency signs and symptoms, reasons to return to the emergency department discussed with patient. - Vital Signs Vital signs: Temp Pulse Resp BP Pulse Ox 99.2 F 84 11 L 153/85 H 97 08/05/19 21:24 08/05/19 23:03 08/05/19 23:00 08/05/19 23:03 08/05/19 23:00 - Laboratory Result Diagrams: 08/05/19 21:58 08/05/19 21:58 Laboratory results interpreted by me: 08/05/19 21:58 Sodium 135.2 L AST 61 H ALT 110 H - EKG Interpretation by Me Additional EKG results interpreted by me: 08/05/19 23:22 EKG obtained on 08/05/2019 at 2148 hrs. was interpreted by this MD. Findings: Normal sinus rhythm, rate 86, normal axis, P waves preceding QRS complexes, QRS complexes appear narrow, there are no obvious patterns of ST segment elevation or depression present to suggest acute myocardial ischemia or infarction. I mpression: Normal sinus rhythm with nonspecific ST segments. Discharge - Discharge Clinical Impression: Anxiety attack Condition: Good Disposition: HOME, SELF-CARE Additional Instructions: Return to the Emergency Department without delay if any worse. It is [facility]. You are being given a handout on local mental health resources in addition to [facility] in case you are unable to be seen at [facility] in a timely fashion. HOME CARE INSTRUCTIONS & INFORMATION: Thank you for choosing us for your medical needs. We hope you're satisfied with the care you received. After you leave, you must properly care for your problem and, at the same time, observe its progress. Any condition can change. Some illnesses can change rapidly over hours or days. If your condition worsens, return to the Emergency Department or see your physician promptly. ABOUT YOUR X-RAYS AND EKG'S: If you had an EKG or X-rays taken, they have been read by the Emergency Physician. The X-rays and EKG's will also be read by a Radiologist or Him Tech within 24 hours. If discrepancies are noted, you will be notified by telephone. Please be certain the ED has a correct telephone number & address where you can be reached. Also, realize that some fractures or abnormalities do not show up on initial X-rays. If your symptoms continue, see your physician. ABOUT YOUR LABORATORY TEST: If you had laboratory tests, the results have been reviewed by the Emergency Physician. Some test results (for example cultures) may not be available for several days. You will be contacted if any test result shows you need additional treatment. Please be certain the ED has a correct telephone number and address where you can be reached. ABOUT YOUR MEDICATIONS: You will receive instructions on how to take your medicine on the prescription label you receive. Additional information may be provided by the Pharmacy. If you have questions afterwards, call the ED for clarification or further instructions. Some prescribed medications may cause drowsiness. Do not perform tasks such as driving a car or operating machinery without consulting your Pharmacist. If you feel you need a refill of pain medication, your condition will need re-evaluation. Please do not call for a refill of any medication. ABOUT YOUR SIGNATURE: Signature of this document acknowledges to followin. Understanding that you received emergency treatment and that you may be released before al medical problems are known or treated. Please be certain the ED has a correct phone number & address where you can be reached. 2. Acknowledgement that you will arrange for follow-up care as recommended. 3. Authorization for the Emergency Physician to provide information to your follow-up Physician in order to maximize your care. AT ANY TIME, IF YOUR SYMPTOMS CHANGE SIGNIFICANTLY OR WORSEN OR YOU DEVELOP NEW SYMPTOMS, RETURN TO THE EMERGENCY DEPARTMENT IMMEDIATELY FOR RE-EVALUATION. OUR GOAL IS TO PROVIDE EXCELLENT MEDICAL CARE! WE HOPE THAT WE HAVE MET YOUR EXPECTATIONS DURING YOUR EMERGENCY DEPARTMENT VISIT AND THAT YOU FEEL YOU HAVE RECEIVED EXCELLENT CARE! Anxiety The physician feels that some of your health problems are being caused by anxiety. Anxiety affects your health in many ways. Anxiety alone can cause palpitations, sweats, chest pains, abdominal pains, shortness of breath, and headaches. It contributes to ulcer disease, high blood pressure, irritable bowel syndrome, and has been shown to cause flare-ups of many other diseases. Anxiety is not a simple disorder to treat. If the anxiety is due to recent life stresses, you may simply need time to "work through" the changes. If the anxiety is due to an underlying unhappiness with yourself or due to psychiatric disturbance, professional help will be needed. Your physician can refer you for further help if needed. Anti-anxiety medication is occasionally given if the stress is acute or if you are having trouble sleeping. Chronic or frequent use of these medications is not a good idea because the body becomes reliant on it, preventing you from dealing with life's normal stresses. Prescriptions: Clonazepam 0.5 mg PO Q12HP PRN #6 tablet PRN Reason: Anxiety Forms: Return to Work I personally performed the services described in the documentation, reviewed and edited the documentation which was dictated to the scribe in my presence, and it accurately records my words and actions.
== END 2019-08-05 23:46 | disposition home or self-care (01) ==
LOC: ER 20:42
DX: F41.9 Anxiety disorder, unspecified (principal); R42 Dizziness and giddiness; R00.2 Palpitations; Z79.899 Other long term (current) drug therapy; Z88.8 Allergy status to other drugs, medicaments and biological substances; F17.210 Nicotine dependence, cigarettes, uncomplicated; I10 Essential (primary) hypertension
CPT/HCPCS: 36415; 80053; 81001; 82962; 84484; 85025; 93005; 93010; 99284

== ENCOUNTER 2019-10-27 18:02 | Emergency (ER) | payer SELFPAY ==
[2019-10-27 19:04] LABS: APPEARANCE,URINE CLEAR; BILIRUBIN,URINE NEGATIVE (NEGATIVE); COLOR,URINE YELLOW; GLUCOSE, URINE NEGATIVE (NEGATIVE); KETONES,URINE NEGATIVE (NEGATIVE); LEUKOCYTE ESTERASE,URINE TRACE (NEGATIVE); NITRITE,URINE NEGATIVE (NEGATIVE); PROTEIN,URINE 30 mg/dL (NEGATIVE); URINE SPECIFIC GRAVITY 1.027
[2019-10-27 20:28] LABS: CHLAM PCR NOT DETECTED (NOT DETECT)
[2019-10-27] MEDS ORDERED: CEFTRIAXONE INJ 250 MG VIAL IM ONE (20:59)
[2019-10-27] MEDS ORDERED: AZITHROMYCIN 250 MG TABLET PO ONE (20:59)
[2019-10-27] MEDS ORDERED: LIDOCAINE 1% INJ-PF (10 MG/ML) 30 ML SDV INJ ONE (20:59)
--- NOTE | 2019-10-27 21:02 | ER Document Report ---
HPI - HPI Time Seen by Provider: 10/27/19 18:30 Pain Level: 2 Notes: Otherwise healthy 24-year-old male presents the emergency department chief complaint of dysuria. Patient does have a history of STIs however he states he was treated for those over a year ago. He reports he is in a new but monogamous relationship. He reports his new partner is "clean because she gets tested monthly". Denies any fever, chills, abdominal pain or testicular pain. He has not had any discharge from the penis. - ROS Systems Reviewed and Negative: Yes All other systems reviewed and negative - CONSTITUTIONAL Constitutional: DENIES: Fever, Chills - GASTROINTESTINAL Gastrointestinal: DENIES: Abdominal Pain - URINARY Urinary: REPORTS: Dysuria - REPRODUCTIVE Reproductive: DENIES: : Past Medical History - General Information source: Patient - Social History Smoking Status: Unknown if Ever Smoked Frequency of alcohol use: None Drug Abuse: None Family History: Reviewed & Not Pertinent Patient has homicidal ideation: No - Past Medical History Cardiac Medical History: Reports: Hx Hypertension Renal/ Medical History: Denies: Hx Peritoneal Dialysis Psychiatric Medical History: Reports: Hx Anxiety, Hx Depression - Immunizations Immunizations up to date: Yes Hx Diphtheria, Pertussis, Tetanus Vaccination: Yes Vertical Provider Document - CONSTITUTIONAL Notes: PHYSICAL EXAMINATION: GENERAL: Well-appearing, well-nourished and in no acute distress. HEAD: Atraumatic, normocephalic. EYES: Pupils equal round extraocular movements intact, conjunctiva are normal. ENT: Nares patent NECK: Normal range of motion LUNGS: No respiratory distress Musculoskeletal: Normal range of motion NEUROLOGICAL: Normal speech, normal gait. PSYCH: Normal mood, normal affect. SKIN: Warm, Dry, normal turgor, no rashes or lesions noted. - INFECTION CONTROL TRAVEL OUTSIDE OF THE [place] IN LAST 30 DAYS: No Course - Re-evaluation Re-evalutation: Urine unremarkable, pt request treatment for possible STI, given rocephin and azithromycin. D/C instructions discussed. - Vital Signs Vital signs: Temp Pulse Resp BP Pulse Ox 98.3 F 96 16 149/78 H 99 10/27/19 18:15 10/27/19 18:15 10/27/19 18:15 10/27/19 18:15 10/27/19 18:15 - Laboratory Laboratory results interpreted by me: 10/27/19 18:45 Urine Protein 30 H Urine Urobilinogen 2.0 H Ur Leukocyte Esterase TRACE H Discharge - Discharge Clinical Impression: Dysuria Condition: Stable Disposition: HOME, SELF-CARE Additional Instructions: Your urine sample today had some white blood cells which could indicate early infection. A urine culture is pending. Please follow-up with the health department for recheck in 7 to 10 days if you continue to have symptoms. Return to the emergency department if you develop a fever, vomiting or persistent abdominal pain.
[2019-10-27 21:35] VITALS: BP 146/93
== END 2019-10-27 21:32 | disposition home or self-care (01) ==
LOC: ER 18:02
DX: R30.0 Dysuria (principal); I10 Essential (primary) hypertension; Z20.2 Contact with and (suspected) exposure to infections with a predominantly sexual mode of transmission
CPT/HCPCS: 99284; 96372; 81001; 87491; 87591; J3490; J0696